=== PATIENT | male | born 1990 | race Caucasian/White ===

== ENCOUNTER 2017-06-05 13:08 | Emergency (ER) | payer MEDICAID, OTHER ==
[2017-06-05] MEDS ORDERED: fentaNYL 100 MCG/2 ML INJ ONE (13:38)
[2017-06-05] MEDS ORDERED: fentaNYL 100 MCG/2 ML INJ IVP ONE (13:48)
[2017-06-05] MEDS ORDERED: ONDANSETRON 4 MG/2 ML VIAL IVP ONE (13:51)
--- NOTE | 2017-06-05 13:52 | EDPHY ---
H & P Stated Complaint: probable l shoulder dislocation/climbing Time Seen by Provider: 06/05/17 13:28 HPI/ROS: CHIEF COMPLAINT: Left shoulder dislocation HISTORY OF PRESENT ILLNESS: The patient presents to the ED after he sustained a left shoulder dislocation while climbing. The patient has a history of prior dislocation x1. The patient denies any acute numbness or weakness. The patient reports moderate pain with attempted movement. The patient did not fall or sustain direct trauma all while this occurred today. REVIEW OF SYSTEMS: A comprehensive 10 point review of systems is otherwise negative aside from elements mentioned in the history of present illness. Source: Patient Exam Limitations: No limitations - Medical/Surgical History Hx Asthma: No Hx Chronic Respiratory Disease: No Hx Diabetes: No Hx Cardiac Disease: No Hx Renal Disease: No Hx Cirrhosis: No Hx Alcoholism: No Hx HIV/AIDS: No Hx Splenectomy or Spleen Trauma: No Other PMH: l shoulder dislocation - Social History Smoking Status: Never smoked - Physical Exam Exam: General Appearance: Alert, no distress Head: Atraumatic Eyes: Pupils equal, round, reactive Neck: Nontender, trachea midline Respiratory: No chest wall tender, subcutaneous air, lungs clear bilaterally Cardiovascular: Regular rate and rhythm Abdomen: Abdomen is soft and nontender, pelvis stable Skin: No lacerations, No abrasion Back: No midline T/L/S pain Extremities: Empty glenohumeral joint appreciated in the left shoulder Neurological: A&Ox3, normal motor function, normal sensory exam Constitutional: Initial Vital Signs Temperature (C) 36.6 C 06/05/17 13:17 Heart Rate 85 06/05/17 13:17 Respiratory Rate 16 06/05/17 13:17 Blood Pressure 102/69 06/05/17 13:17 O2 Sat (%) 97 06/05/17 13:17 O2 Delivery Mode Room Air Allergies/Adverse Reactions: No Known Allergies Allergy (Unverified 06/05/17 13:16) Home Medications: Medication Instructions Recorded NK [No Known Home Meds] 06/05/17 Medical Decision Making - Diagnostics Imaging Results: Left shoulder x-ray: Images reviewed by myself, left glenohumeral dislocation appreciated, negative for acute fracture by my interpretation ED Course/Re-evaluation: The patient presents to the ED with a left shoulder dislocation. He had an IV established. He received 100 mcg of fentanyl. I reduced his shoulder without complication. The patient's postprocedure examination is consistent with a reduction of the joint. The patient was placed in a sling. He will be referred to our on-call orthopedic surgeon for further evaluation of his history of multiple left shoulder dislocations. Differential Diagnosis: Differential diagnosis considered includes fracture, sprain, dislocation Departure - Departure Disposition: Home, Routine, Self-Care Clinical Impression: Shoulder dislocation Qualifiers: Encounter type: initial encounter Laterality: left Qualified Code(s): S43.005A - Unspecified dislocation of left shoulder joint, initial encounter Condition: Good Instructions: Shoulder Dislocation (ED) Additional Instructions: 1. Take Ibuprofen or Motrin 600 mg by mouth three times a day. 2. Wear sling for comfort. 3. Follow up with the orthopedic surgeon you have been referred to for further evaluation of your recurrent shoulder dislocations. Referrals: Jorge Ag MD [Medical Doctor] - As per Instructions
[2017-06-05 14:51] VITALS: BP 118/76; PULSE 84; RESP 18; TEMP 98.4; O2SAT 95
== END 2017-06-05 14:53 | disposition home or self-care (01) ==
PROC: 0RSKXZZ Reposition Left Shoulder Joint, External Approach (ICD-10-PCS; principal; 2017-06-05)
DX: S43.005A Unspecified dislocation of left shoulder joint, initial encounter (principal); X58.XXXA Exposure to other specified factors, initial encounter; Y99.8 Other external cause status; Y93.39 Activity, other involving climbing, rappelling and jumping off
CPT/HCPCS: 96374; A4565; J2405; J3010